=== PATIENT | female | born 1930 | race Caucasian/White ===

== ENCOUNTER 2019-06-10 19:05 | Emergency (ER) | payer OTHER ==
[~2019-06-10] VITALS: Ht 149.9 cm; Wt 47.6 kg
[~2019-06-10 19:05] MED LIST: ESCI20TA PO; GABA800T11 PO; HYDR-4384 PO; LORA2TAB95 PO; MELO15TA13 PO; MESA500C PO; METO-356 PO; ZOLP10TA2 PO
[2019-06-10] MEDS ORDERED: ONDANSETRON HCL/PF 4 MG/2 ML VIAL IVP ONE ×2 (19:30→20:30)
[2019-06-10] MEDS ORDERED: IV NS 0.9% 500 ML BAG IV ONE (19:30)
[2019-06-10] MEDS ORDERED: ONDANSETRON HCL/PF 4 MG/2 ML VIAL ONE ×2 (19:34→20:46)
--- NOTE | 2019-06-10 19:41 | NUR ---
ALEXANDRU FROM HOME. TO ER BED 8. PT LETHARGIC, RESPONSIVE TO VERBAL STIMULI. FARSI SPEAKING, SCRIBE AT BEDSIDE FROM TRANSLATION. C/O NAUSEA AND VOMMITING. PER EMS REPORT, SYMPTOMS STARTED 30MIN MEAL TEMPERER. SHE ALSO RECEIVED ZOFRAN 4MG ENROUTE TO HOSPITAL. PT DENIES PAIN. AWAITING FOR FAMILY FOR FURTHER INFORMATION. MD WAS AT BEDSIDE. ORDERS RECEIVED, NOTED AND CARIIED OUT. PT PRESENTED WITH L HAND 20G IV LINE. INSTRUMENT REPAIRER HELPER AT BEDSIDE FOR BLOOD DRAW. EKG DONE BY EMT. XRAY DONE AT BEDSIDE.
[2019-06-10 19:47] LABS: BASOPHILS % (AUTO) 0.6 % (0.0-2.0); EOSINOPHILS % (AUTO) 1.7 % (0.0-6.0); HEMATOCRIT 35 % (33-45); HEMOGLOBIN 11.4 g/dL (11.5-14.8); LYMPHOCYTES # (AUTO) 2.2 /CMM (0.8-4.8); LYMPHOCYTES % (AUTO) 41.3 % (20.0-44.0); MEAN CORPUSCULAR HGB CONC 32 g/dl (31.0-36.0); MEAN CORPUSCULAR VOLUME 87 fL (82-100); MONOCYTES # (AUTO) 0.3 /CMM (0.1-1.30); MONOCYTES % (AUTO) 5.8 % (2.0-12.0); NEUTROPHILS # (AUTO) 2.7 /CMM (1.8-8.9); NEUTROPHILS % (AUTO) 50.6 % (43.0-81.0); PLATELET COUNT (AUTO) 277 /CMM (150-450); RED BLOOD CELL COUNT(AUTO) 4.06 MIL/uL (4.0-5.2); WHITE BLOOD COUNT (AUTO) 5.4 K/uL (4.3-11.0)
[2019-06-10 19:52] LABS: CALCIUM, SERUM 8.9 mg/dL (8.5-10.1); CARBON DIOXIDE 25 mmol/L (21-32); CHLORIDE 104 mmol/L (98-107); CREATININE 1.4 mg/dL (0.6-1.3); GLUCOSE 126 mg/dL (74-106); POTASSIUM 4.3 mmol/L (3.5-5.1); SODIUM SERUM 138 mmol/L (136-145); UREA NITROGEN, BLOOD 15 mg/dL (7-18)
[2019-06-10 19:57] LABS: ALANINE AMINOTRANSFERASE 32 U/L (12-78); ALBUMIN 3.8 g/dL (3.4-5.0); ALKALINE PHOSPHATASE 80 U/L (46-116); ASPARTATE AMINOTRANSFERASE 28 U/L (15-37); BILIRUBIN,DIRECT 0.1 mg/dL (0.0-0.2); BILIRUBIN,TOTAL 0.2 mg/dL (0.2-1.0); LIPASE 372 U/L (73-393); TOTAL PROTEIN, SERUM 7.6 g/dL (6.4-8.2)
[2019-06-10] MEDS ORDERED: MECLIZINE HCL 12.5 MG TABLET PO ONE (20:30)
[2019-06-10] MEDS ORDERED: MECLIZINE HCL 25 MG TABLET ONE (20:46)
[2019-06-10 20:49] LABS: APPEARANCE,URINE Clear (CLEAR); BILIRUBIN,URINE Negative (NEGATIVE); BLOOD, URINE Trace-intact Ery/uL (NEGATIVE); COLOR,URINE Yellow (YELLOW); KETONES,URINE Negative (NEGATIVE); LEUKOCYTE ESTERASE ,URINE Negative (NEGATIVE); NITRITE, URINE Negative (NEGATIVE); PROTEIN,URINE 30 mg/dl (NEGATIVE); UGLUCOSE Negative (NEGATIVE); UROBILINOGEN,URINE 0.2 EU/dL (0.2)
[2019-06-10] MEDS ORDERED: BENAZEPRIL HCL 10 MG TABLET ONE (20:57)
[2019-06-10] MEDS ORDERED: BENAZEPRIL HCL 20 MG TABLET PO SCH (21:00)
--- NOTE | 2019-06-10 21:11 | NUR ---
Patient discharged to home in stable condition. Written and verbal after care instructions given. Patient verbalizes understanding of instruction.IV removed. Catheter intact and site benign. Pressure and 4x4 applied to site. No bleeding noted. Pt assisted to car on wheelchar.
[2019-06-10 21:17] VITALS: BP 156/80
[2019-06-10 21:24] LABS: BACTERIA,URINE Rare /HPF (None Seen); RBC,URINE 2-3/HPF /HPF (0-2); SQUAMOUS EPITHELIAL CELL,UR Moderate /HPF (None Seen); URINE AMORPHOUS URATE Few /HPF (None Seen); WBC,URINE 0-2 /HPF (0-3)
== END 2019-06-10 21:28 | disposition home or self-care (01) ==
LOC: ER 19:07
DX: R42 Dizziness and giddiness (principal); R11.2 Nausea with vomiting, unspecified; R53.1 Weakness; R47.01 Aphasia; I10 Essential (primary) hypertension; Z86.73 Personal history of transient ischemic attack (TIA), and cerebral infarction without residual deficits; Z96.659 Presence of unspecified artificial knee joint; Z88.6 Allergy status to analgesic agent
CPT/HCPCS: 36415; 71045; 80048; 80076; 81001; 83690; 84484; 85025; 93005; 96374; 96376; 99284; J2405 ×2; J7040; J8597; 81000-TC